=== PATIENT | male | born 1945 | race Caucasian/White ===

== ENCOUNTER → 2017-02-23 | Outpatient (CLI) | payer BC ==
[~2017-02-23] MED LIST: REGADENOSON 0.4 MG/5 ML DISP.SYRIN. IV ONE
== END | disposition home or self-care (01) ==
LOC: PCVCIMAG 08:37
PROVIDERS: ATTEND Internal Medicine
DX: I25.10 Atherosclerotic heart disease of native coronary artery without angina pectoris (principal); I10 Essential (primary) hypertension; J44.9 Chronic obstructive pulmonary disease, unspecified; R07.9 Chest pain, unspecified; Z95.5 Presence of coronary angioplasty implant and graft
CPT/HCPCS: 78452; 93017; 93306; A9500; J2785

== ENCOUNTER → 2017-08-03 | Outpatient (CLI) | payer MEDICARE | END | disposition home or self-care (01) | LOC: PCVCCLINIC 12:07 | PROVIDERS: ATTEND Internal Medicine | DX: I25.10 Atherosclerotic heart disease of native coronary artery without angina pectoris (principal); I71.2 Thoracic aortic aneurysm, without rupture; I10 Essential (primary) hypertension; E78.5 Hyperlipidemia, unspecified; I65.23 Occlusion and stenosis of bilateral carotid arteries; F17.210 Nicotine dependence, cigarettes, uncomplicated; R00.1 Bradycardia, unspecified; Z79.82 Long term (current) use of aspirin; Z79.899 Other long term (current) drug therapy | CPT/HCPCS: 80061; 93005; G0463 ==

== ENCOUNTER → 2018-02-01 | Outpatient (CLI) | payer MEDICARE, BC | END | disposition home or self-care (01) | LOC: PCVCCLINIC 11:35 | DX: I25.10 Atherosclerotic heart disease of native coronary artery without angina pectoris (principal); I71.2 Thoracic aortic aneurysm, without rupture; E78.5 Hyperlipidemia, unspecified; I10 Essential (primary) hypertension; I65.23 Occlusion and stenosis of bilateral carotid arteries; F17.200 Nicotine dependence, unspecified, uncomplicated; Z79.82 Long term (current) use of aspirin; Z79.899 Other long term (current) drug therapy | CPT/HCPCS: 80061; 93005; G0463 ==

== ENCOUNTER → 2018-08-04 | Outpatient (CLI) | payer MEDICARE | END | disposition home or self-care (01) | LOC: PCVCCLINIC 11:30 | PROVIDERS: ATTEND Internal Medicine | DX: I25.10 Atherosclerotic heart disease of native coronary artery without angina pectoris (principal); I71.2 Thoracic aortic aneurysm, without rupture; E78.5 Hyperlipidemia, unspecified; I10 Essential (primary) hypertension; I65.23 Occlusion and stenosis of bilateral carotid arteries; F17.210 Nicotine dependence, cigarettes, uncomplicated; Z72.89 Other problems related to lifestyle; Z79.82 Long term (current) use of aspirin; Z79.899 Other long term (current) drug therapy | CPT/HCPCS: 80061; 93005; G0463 ==

== ENCOUNTER → 2019-03-07 | Outpatient (CLI) | payer MEDICARE ==
--- NOTE | 2019-03-07 15:29 | PCVCIMAG ---
APPROVED REPORT Indications Stenosis Doppler Spectral Velocity Analysis PSV / EDVPSV / EDV ECA (R) 63 / 10 cm/sECA (L) 84 / 12 cm/s dICA (R) 53 / 17 cm/sdICA (L) 72 / 25 cm/s Flaquito (R) 82 / 21 cm/smICA (L) 60 / 19 cm/s pICA (R) 41 / 13 cm/spICA (L) 68 / 12 cm/s Bulb (R) 31 / 9 cm/sBulb (L) 51 / 12 cm/s dCCA (R) 69 / 12 cm/sdCCA (L) 86 / 19 cm/s mCCA (R) 72 / 16 cm/smCCA (L) 91 / 18 cm/s Vert (R) 53 / 12 cm/sVert (L) 40 / 8 cm/s ICA/CCA 0.84 ICA/CCA 1.14 Basic Measurements Blood Pressure: Pulses: Right Left RightLeft Brachial(Sitting) 176/037zkOp061/98mmHgTemporal Real Time B-Mode Imaging Vert. (R)AntegradeVert. (L)Antegrade Findings The right carotid bulb has moderate calcified plaque. The right proximal internal carotid artery shows <40% stenosis. The right common carotid artery shows no significant stenosis. The right external carotid artery shows no significant stenosis. The left carotid bulb has moderate calcified plaque. The left proximal internal carotid artery shows <40% stenosis. The left common carotid artery shows no significant stenosis. The left external carotid artery shows no significant stenosis. Conclusion 1. Right internal carotid artery stenosis (<40%) 2. Left internal carotid artery stenosis (<40%) 3. Antegrade vertebral flow
--- NOTE | 2019-03-07 17:02 | PCVCIMAG ---
APPROVED REPORT Study performed: 03/07/2019 15:33:47 EXAM: Comprehensive 2D, Doppler, and color-flow Echocardiogram Patient Location: Echo lab Room #: 2Status: routine BSA: 2.26 HR: 58 bpmBP: 172/98 mmHg Rhythm: Bradycardia Other Information Study Quality: Good Risk Factors: Cardiac Risk Factors: HTN, Hyperlipidemia, Smoking Indications CAD Hypertension/HDD S/P stent mid LAD, 2D Dimensions IVSd: 12.16 (7-11mm)LVOT Diam: 20.87 (18-24mm) LVDd: 59.01 mm PWd: 8.33 (7-11mm)Ascending Ao: 35.13 (22-36mm) LVDs: 36.35 (25-40mm) Left Atrium: 38.42 (27-40mm) Aortic Root: 26.70 mm LV Single Plane 4CH: 63.68 % LV Single Plane 2CH: 71.56 % Biplane EF: 70.4 % Volumes Left Atrial Volume (Systole) Single Plane 4CH: 52.27 mLSingle Plane 2CH: 85.30 mL Biplane LA Volume: 72.00 mLLA ESV Index: 32.00 mL/m2 Aortic Valve AoV Peak Golden.: 1.64 m/s AO Peak Gr.: 10.82 mmHgLVOT Max P.03 mmHg LVOT Max V: 1.20 m/s EDUARD Vmax: 2.49 cm2 AI Vmax: 5.24 m/s AI Summers: 1.81 m/s2 AI PHT: 840.42 ms Mitral Valve E/A Ratio: 0.5 MV Decel. Time: 259.94 ms MV E Max Golden.: 0.56 m/s MV A Golden.: 1.05 m/s IVRT: 124.57 ms TDI E/Lateral E': 14.00E/Medial E': 14.00 Medial E' Golden.: 0.04 m/s Lateral E' Golden.: 0.04 m/s Pulmonary Valve PV Peak Golden.: 0.83 m/sPV Peak Gr.: 2.73 mmHg Pulmonary Vein P Vein S: 0.73 m/sP Vein A: 0.33 m/s P Vein D: 0.46 m/sP Vein A Dur.: 121.1 msec P Vein S/D Ratio: 1.59 Tricuspid Valve TR Peak Golden.: 2.27 m/s TR Peak Gr.: 20.63 mmHg TV Vmax: 0.78 m/sPA Pressure: 28.00 mmHg Left Ventricle Left ventricle is at the upper limits of normal. There is normal LV segmental wall motion. Mild septal hypertrophy is present. Left ventricular systolic function is normal. The left ventricular ejection fraction is within the normal range. LVEF is 70%. Grade I - abnormal relaxation pattern. Right Ventricle The right ventricle is normal size. The right ventricular systolic function is normal. Atria The left atrium size is normal. The right atrium size is normal. Aortic Valve Aortic valve is trileaflet, mild sclerosis. Mild-moderate aortic regurgitation. There is no aortic valvular stenosis. Mitral Valve Moderate mitral annular calcification. There is no mitral valve regurgitation noted. No evidence of mitral valve stenosis. Tricuspid Valve The tricuspid valve is normal in structure. Mild tricuspid regurgitation with a PA pressure of 28 mmHg. Pulmonic Valve The pulmonary valve is normal in structure. Trace pulmonic regurgitation. Great Vessels The aortic root is normal in size. The ascending aorta is normal in size. Aortic arch is normal in caliber. IVC is normal in size and collapses >50% with inspiration. Pericardium There is no pericardial effusion. There is no pleural effusion. <Conclusion> Left ventricular systolic function is normal. There is normal LV segmental wall motion. LVEF is 70%. Mild diastolic dysfunction Aortic valve is trileaflet, mild sclerosis. Mild-moderate aortic regurgitation, no stenosis. Moderate mitral annular calcification. No mitral valve regurgitation. Mild tricuspid regurgitation with a pulmonary artery pressure of 28 mmHg. There is no pericardial effusion.
== END | disposition home or self-care (01) ==
LOC: PCVCIMAG 14:52
PROVIDERS: ATTEND Internal Medicine
DX: I65.23 Occlusion and stenosis of bilateral carotid arteries (principal); I08.2 Rheumatic disorders of both aortic and tricuspid valves; I25.10 Atherosclerotic heart disease of native coronary artery without angina pectoris; E78.5 Hyperlipidemia, unspecified; I10 Essential (primary) hypertension; F17.210 Nicotine dependence, cigarettes, uncomplicated; J44.9 Chronic obstructive pulmonary disease, unspecified; Z79.82 Long term (current) use of aspirin
CPT/HCPCS: 36415; 80061; 93005; 93306; 93880; G0463